=== PATIENT | female | born 1960 | race Caucasian/White ===

== ENCOUNTER → 2017-05-22 | Outpatient (CLI) | payer BC ==
[2017-05-22 16:42] VITALS: BP 153/97; PULSE 77; TEMP 98.4; BMI 41.6
--- NOTE | 2017-05-22 17:05 | P.BASOAP ---
Subjective Progress Note Date: 05/22/17 Principal diagnosis: Morbid obesity Patient well known to our service from prior lap band. Patient's weight preoperatively was 305. She was able to lose down to 227. She felt quite good at that weight. Recently her weight has gradually increased and she is 258 today. She feels that her band is occasionally restrictive but many times feels too loose. She would like an adjustment. Denies nausea vomiting. Some reflux at times. Objective - Vital Signs Vital signs: Vital Signs Temp 98.4 F 05/22/17 16:37 Pulse 77 05/22/17 16:37 Resp BP 153/97 05/22/17 16:37 Pulse Ox Intake & Output 05/21/17 05/22/17 05/22/17 18:59 06:59 18:59 Weight 117.027 kg - Exam Abdomen: Soft, nontender, nondistended Assessment/Plan (1) Morbid obesity Narrative/Plan: Band was accessed. There was 1.4 mL in the band. 0.2 mL was added aseptically. The patient then developed dysphagia. It was loosened to 1.5 mL. She tolerated water well at that point. She will follow-up in 1 month. We' ll obtain esophagram prior to that visit. Plan: Date: 05/22/17 Initial Weight: Initial BMI: Current Weight: 117.027 kg Current BMI: 41.6 Type of Surgery: Total Volume in Band: 1.5 Previous Volume: Volume Removed: Volume Added: 0.1 Band Size:
== END | disposition home or self-care (01) ==
LOC: BARWHC3 14:52
PROVIDERS: ATTEND Surgery
DX: E66.01 Morbid (severe) obesity due to excess calories (principal); Z68.41 Body mass index [BMI] 40.0-44.9, adult
CPT/HCPCS: 99212

== ENCOUNTER → 2017-06-19 | Outpatient (CLI) | payer BC ==
--- NOTE | 2017-06-19 14:46 | FL ---
GASTRIC BANDING ESOPHAGRAM CLINICAL HISTORY: Pain Gastric banding esophagram was performed. The patient ingested thin liquid barium without difficulty or delay. Gastric band is noted to be in place. There is no evidence for leak or obstruction. Ther e is narrowing at the band site without significant obstruction. No prolapse is identified. IMPRESSION: There is narrowing at the band site without significant obstruction.
[2017-06-19 15:09] VITALS: BP 144/84; PULSE 73; RESP 16; TEMP 98.3
--- NOTE | 2017-06-19 16:21 | P.BASOAP ---
Subjective Progress Note Date: 06/19/17 Principal diagnosis: Morbid obesity Patient doing well. She states she is in the green zone. Currently at 1.5 mL. Upper GI performed today shows mild narrowing at the band site but appears appropriate. 3 pound weight loss. Objective - Vital Signs Vital signs: Vital Signs Temp 98.3 F 06/19/17 15:00 Pulse 73 06/19/17 15:00 Resp 16 06/19/17 15:00 BP 144/84 06/19/17 15:00 Pulse Ox - Exam Abdomen: Soft, nontender, nondistended Assessment/Plan (1) Morbid obesity Narrative/Plan: We'll keep at 1.5 mL. Follow-up evaluation 3 months. Increase exercise. Plan: Date: 06/19/17 Initial Weight: 115.836 kg Initial BMI: Current Weight: Current BMI: Type of Surgery: Total Volume in Band: 1.5 Previous Volume: Volume Removed: Volume Added: Band Size:
[2017-06-20 10:19] VITALS: BMI 35.0
== END | disposition home or self-care (01) ==
LOC: BARWHC3 14:37
PROVIDERS: ATTEND Surgery
DX: E66.01 Morbid (severe) obesity due to excess calories (principal); R13.10 Dysphagia, unspecified
CPT/HCPCS: 74220; 99212